=== PATIENT | male | born 1985 | race American Indian/Alaskan Native ===

== ENCOUNTER 2017-09-06 10:32 | Day surgery (SDC) | payer OTHER ==
[~2017-09-06 10:32] MED LIST: ANCEF/STERILE WATER 2 GM/20 ML 2 GM/20 ML SYRINGE IV NR; NACL 0.9% 1000 ML 1,000 ML IV SCH
[2017-09-06 11:22] LABS: Hematocrit 35.7 % (35.5-45.6); Hemoglobin 12.4 gm/dl (11.8-15.2); Mean Corpuscular HGB Conc 35 % (32-34); Mean Corpuscular Hemoglobin 30 pg (28-32); Mean Corpuscular Volume 86 fl (84-94); Platelet Count 302 K/mm3 (140-440); Red Blood Count 4.15 M/mm3 (3.65-5.03); Red Cell Distribution Width 13.9 % (13.2-15.2); White Blood Count 6.3 K/mm3 (4.5-11.0)
[2017-09-06 11:23] LABS: Basophils % (Auto) 1.1 % (0.0-1.8); Eosinophils % (Auto) 6.2 % (0.0-4.3)
[2017-09-06 11:31] LABS: BUN/Creatinine Ratio 23; Blood Urea Nitrogen 16 mg/dL (9-20); Carbon Dioxide 27 mmol/L (22-30); Chloride 96.7 mmol/L (98-107); Glucose 82 mg/dL (75-100); Sodium 134 mmol/L (137-145)
[2017-09-06 11:36] LABS: Anion Gap 16 mmol/L; Potassium 5.3 mmol/L (3.6-5.0)
[2017-09-06] MEDS ORDERED: XYLOCAINE 2% INFILTRATI ONE (13:58)
[2017-09-06] MEDS ORDERED: HEPARIN/NS 5000 UNIT/500ML(CATH LAB) 1,000 ML IR ONE (13:58)
[2017-09-06] MEDS ORDERED: VERSED ONE ×2 (13:59→15:59)
[2017-09-06] MEDS: SUBLIMAZE ONE ×5 (13:59→15:49)
[2017-09-06] MEDS: HEPARIN 10,000 UNITS/10 ML ONE ×2 (14:33→15:33)
[2017-09-06] MEDS: VERSED ONE ×2 (14:38→15:02)
[2017-09-06] MEDS ORDERED: NITROGLYCERIN SYRINGE UD ONE ×2 (14:45→15:45)
[2017-09-06] MEDS ORDERED: SUBLIMAZE ONE ×2 (15:05→16:00)
[2017-09-06] MEDS ORDERED: BENADRYL ONE (15:08)
[2017-09-06] MEDS ORDERED: NITROGLYCERIN SYRINGE 6 ML ONE (15:17)
[2017-09-06] MEDS ORDERED: HEPARIN/NS 5000 UNIT/500ML(CATH LAB) 500 ML IR ONE (15:31)
[2017-09-06] MEDS ORDERED: NITROGLYCERIN SYRINGE 9 ML ONE (16:06)
[2017-09-06] MEDS ORDERED: WATER FOR INJ (PF) 10 ML ONE (16:18)
[2017-09-06] MEDS ORDERED: CATHFLO ONE (16:18)
--- NOTE | 2017-09-06 16:46 | Short Stay Summary ---
Short Stay Documentation Date of service: 09/06/17 - History Principal diagnosis: PVD with rest pain left leg H&P: obtained from office - Allergies and Medications Current Medications: Allergies No Known Allergies Allergy (Verified 09/06/17 11:14) Home Medications Medication Instructions Recorded Confirmed Last Taken Type Meloxicam [Meloxicam] 30 mg pe PO QDAY 09/06/17 09/06/17 09/05/17 History Oxycodone HCl/Acetaminophen 1 tab PO PRN 09/06/17 09/06/17 09/05/17 History [Oxycodone-Acetaminophen 5-325] Prednisone [Prednisone] 20 mg PO QDAY 09/06/17 09/06/17 09/04/17 History Tramadol HCl [traMADol] 50 mg PO PRN PRN 09/06/17 09/06/17 09/02/17 History Active Medications Cefazolin Sodium (Ancef/Sterile Water 2 Gm/20 Ml) 2 gm in 20 mls @ 80 mls/hr IV PREOP NR PRN Reason: Protocol Stop: 09/06/17 23:59 Sodium Chloride (Nacl 0.9% 1000 Ml) 1,000 mls @ 42 mls/hr IV DIRECT MARLENE Last Admin: 09/06/17 11:16 Dose: 42 mls/hr - Brief post op/procedure progress note Date of procedure: 09/06/17 Pre-op diagnosis: PVD with rest pain Post-op diagnosis: same Procedure: LLE revasc Anesthesia: local Surgeon: FEDERICA DOVER Estimated blood loss: minimal Pathology: none Condition: stable - Disposition Condition at discharge: Good Disposition: [id number] TO HOME OR SELFCARE Short Stay Discharge Plan Activity: advance as tolerated Weight Bearing Status: Weight Bear as Tolerated Diet: regular Wound: keep clean and dry, per your surgeon's advice
--- NOTE | 2017-09-06 16:55 | Operative Report ---
Operative Report Operative Report: EXAM: LEFT LOWER EXTREMITY REVASCULARIZATION AND THROMBECTOMY CLINICAL INDICATION: PATIENT WITH A HISTORY OF LEFT LOWER EXTREMITY REST PAIN AND ABNORMAL ARTERIAL ULTRASOUND DATE: 09/06/2017 PROCEDURE: Following an explanation of the risks, benefits and alternatives; written informed consent was obtained. The patient was brought to the angiographic suite and placed in supine position on the examination table. Initial ultrasound evaluation of the right groin demonstrated a patent right common femoral artery. The right groin was prepped and draped in the usual sterile fashion. 1% lidocaine was used for anesthesia. Under ultrasound guidance, the right common femoral artery was cannulated with a 7 cm 21-gauge needle. A 0.018 guidewire was advanced centrally. The needle was removed and a micro-sheath placed. The 0.018 guidewire was exchanged for a 0.035 guidewire and the micro-sheath exchanged for a 5 [place] vascular sheath. A 5 [place] sauce Omni was advanced over the guidewire to the distal abdominal aorta. The guidewire was removed. An aortogram with bilateral lower extremity runoff was then performed. This demonstrates a relatively high bifurcation of the aorta with extensive beaded appearance involving both superficial femoral arteries throughout their length. There is eating in the proximal anterior tibial artery with occlusion distally. The posterior tibial artery and tibioperoneal trunk are completely occluded and filled on the foot with collaterals. The bifurcation was crossed using the 5 [place] Omni catheter and 0.035 guidewire. Additional imaging was obtained for anatomic localization. The guidewire was exchanged for a 4 [place] vertebral catheter and additional imaging obtained with the catheter and positioned in the popliteal artery. Again noted is complete occlusion of the anterior tibial artery posterior tibial artery and peroneal artery with reconstitution through collaterals. Proximal to the occlusion, the arteries have a corrugated appearance. The tibioperoneal trunk was selectively cannulated using the vertebral catheter and V 18 guidewire. The vertebral catheter was exchanged for an 018 Trailblazer catheter and together the Trailblazer catheter and guidewire were advanced to the foot. Contrast was injected with the catheter on the foot which demonstrates a patent calcaneal blood vessels a. With the wire on the foot, the catheter was removed and angioplasty was performed from proximal to distal. A luminal channel was present however, there appeared to be intraluminal thrombus. Mechanical thrombectomy was then performed using a 5 [place]ovan penumbra mechanical thrombectomy device. Post thrombectomy imaging demonstrated improved luminal flow however, there was significant arterial spasm for which nitroglycerin was administered. The anterior tibial artery was then cannulated using the across catheter and V 18 guidewire. Together guidewire and catheter were advanced to the foot. Additional thrombectomy was performed using the 5 [place] penumbra mechanical thrombectomy device. Post thrombectomy angioplasty was performed on the foot to the vessel origin. Significant arterial spasm was again identified and additional nitroglycerin and TPA was injected. Angioplasty of the SFA was then performed using a 5 mm balloon throughout its length. Post procedure imaging demonstrated significant arterial spasm in the lower leg with a patent SFA. At this point, the catheters, guidewires and sheaths were removed and hemostasis was achieved using manual compression. Sterile dressing was then applied. The patient tolerated the procedure well. There were no immediate post procedure competitions. Conscious sedation was performed under the guidance of radiologic nursing. Continuous cardiopulmonary monitoring was utilized. IMPRESSION: 1) Left lower extremity angiography demonstrated a beaded appearance throughout the SFA. This may represent some underlying vasculitis such as fibromuscular dysplasia. Additionally, there is occlusion of the anterior tibial artery, tibioperoneal trunk with reconstitution of the distal anterior tibial artery and posterior tibial artery through collaterals. Just proximal to the occlusion of the anterior tibial artery there is a beaded appearance of the arteries. 2) Mechanical thrombectomy of the posterior tibial artery and anterior tibial artery. 3) Angioplasty of the anterior tibial artery and posterior tibial artery 4) Angioplasty of the superficial femoral artery.
[2017-09-06] MEDS ORDERED: NORCO 5/325 PO ONE (17:19)
[2017-09-06 20:16] VITALS: BP 152/91
== END 2017-09-06 20:30 | disposition home or self-care (01) ==
LOC: CATHLABREC 10:32
PROVIDERS: ATTEND Radiology Diagnostic Radiology
DX: I70.222 Atherosclerosis of native arteries of extremities with rest pain, left leg (principal); Z79.899 Other long term (current) drug therapy
CPT/HCPCS: 36415; 37184; 37185; 37224; 37228; 37232; 75630; 80048; 85025; C1725; C1757; C1760; C1769; C1887; J1200; J1644; J2250; J2997; J3010; J7030; Q9967; 75625; 75716

== ENCOUNTER 2017-09-17 08:53 | Outpatient (CLI) | payer OTHER | END 2017-09-17 08:54 | disposition home or self-care (01) | LOC: WOUND 08:53 | PROVIDERS: ATTEND Podiatrist | DX: I70.262 Atherosclerosis of native arteries of extremities with gangrene, left leg (principal); I74.3 Embolism and thrombosis of arteries of the lower extremities; I73.1 Thromboangiitis obliterans [Buerger's disease]; Z87.891 Personal history of nicotine dependence | CPT/HCPCS: G0277 ×2; 99183 ==

== ENCOUNTER 2017-09-20 08:11 | Outpatient (CLI) | payer OTHER | END 2017-09-20 08:12 | disposition home or self-care (01) | LOC: WOUND 08:11 | PROVIDERS: ATTEND Internal Medicine | DX: I70.262 Atherosclerosis of native arteries of extremities with gangrene, left leg (principal); I74.3 Embolism and thrombosis of arteries of the lower extremities; I73.1 Thromboangiitis obliterans [Buerger's disease]; I73.01 Raynaud's syndrome with gangrene; Z87.891 Personal history of nicotine dependence | CPT/HCPCS: G0277 ×2; 99183 ==

== ENCOUNTER 2017-09-21 08:04 | Outpatient (CLI) | payer OTHER | END 2017-09-21 08:05 | disposition home or self-care (01) | LOC: WOUND 08:04 | PROVIDERS: ATTEND Surgery | DX: I70.262 Atherosclerosis of native arteries of extremities with gangrene, left leg (principal); I73.1 Thromboangiitis obliterans [Buerger's disease]; I74.3 Embolism and thrombosis of arteries of the lower extremities; I73.01 Raynaud's syndrome with gangrene; Z87.891 Personal history of nicotine dependence | CPT/HCPCS: G0277 ×2; 99183 ==

== ENCOUNTER 2017-09-22 08:05 | Outpatient (CLI) | payer OTHER | END 2017-09-22 08:06 | disposition home or self-care (01) | LOC: WOUND 08:05 | PROVIDERS: ATTEND Surgery | DX: I70.262 Atherosclerosis of native arteries of extremities with gangrene, left leg (principal); I74.3 Embolism and thrombosis of arteries of the lower extremities; I73.1 Thromboangiitis obliterans [Buerger's disease]; I73.01 Raynaud's syndrome with gangrene; Z87.891 Personal history of nicotine dependence | CPT/HCPCS: G0277 ×2; 99183 ==

== ENCOUNTER 2017-09-23 08:00 | Outpatient (CLI) | payer OTHER | END 2017-09-23 08:01 | disposition home or self-care (01) | LOC: WOUND 08:00 | PROVIDERS: ATTEND Nurse Practitioner | DX: I70.262 Atherosclerosis of native arteries of extremities with gangrene, left leg (principal); I74.3 Embolism and thrombosis of arteries of the lower extremities; I73.1 Thromboangiitis obliterans [Buerger's disease]; I73.01 Raynaud's syndrome with gangrene; Z87.891 Personal history of nicotine dependence | CPT/HCPCS: G0277 ×2; 99183 ==

== ENCOUNTER 2017-09-24 08:07 | Outpatient (CLI) | payer OTHER | END 2017-09-24 08:08 | disposition home or self-care (01) | LOC: WOUND 08:07 | PROVIDERS: ATTEND Podiatrist | DX: I70.262 Atherosclerosis of native arteries of extremities with gangrene, left leg (principal); I74.3 Embolism and thrombosis of arteries of the lower extremities; I73.1 Thromboangiitis obliterans [Buerger's disease]; I73.01 Raynaud's syndrome with gangrene; Z87.891 Personal history of nicotine dependence | CPT/HCPCS: G0277 ×2; 99183 ==

== ENCOUNTER 2017-09-27 08:06 | Outpatient (CLI) | payer OTHER | END 2017-09-27 08:07 | disposition home or self-care (01) | LOC: WOUND 08:06 | PROVIDERS: ATTEND Internal Medicine | DX: I70.262 Atherosclerosis of native arteries of extremities with gangrene, left leg (principal); I74.3 Embolism and thrombosis of arteries of the lower extremities; I73.1 Thromboangiitis obliterans [Buerger's disease]; I73.01 Raynaud's syndrome with gangrene; Z87.891 Personal history of nicotine dependence | CPT/HCPCS: G0277 ×2; 99183 ==

== ENCOUNTER 2017-09-28 12:59 | Outpatient (CLI) | payer OTHER | END 2017-09-28 13:00 | disposition home or self-care (01) | LOC: WOUND 12:59 | PROVIDERS: ATTEND Surgery | DX: I70.262 Atherosclerosis of native arteries of extremities with gangrene, left leg (principal); I70.261 Atherosclerosis of native arteries of extremities with gangrene, right leg; I74.3 Embolism and thrombosis of arteries of the lower extremities; I73.01 Raynaud's syndrome with gangrene; I73.1 Thromboangiitis obliterans [Buerger's disease]; Z87.891 Personal history of nicotine dependence | CPT/HCPCS: G0277 ×2; 99183 ==

== ENCOUNTER 2017-09-29 11:51 | Outpatient (CLI) | payer OTHER | END 2017-09-29 11:52 | disposition home or self-care (01) | LOC: WOUND 11:51 | PROVIDERS: ATTEND Internal Medicine | DX: I70.262 Atherosclerosis of native arteries of extremities with gangrene, left leg (principal); I70.261 Atherosclerosis of native arteries of extremities with gangrene, right leg; I74.3 Embolism and thrombosis of arteries of the lower extremities; I73.01 Raynaud's syndrome with gangrene; I73.1 Thromboangiitis obliterans [Buerger's disease]; Z87.891 Personal history of nicotine dependence | CPT/HCPCS: G0277 ×2; 99183 ==

== ENCOUNTER 2017-10-04 13:00 | Outpatient (CLI) | payer OTHER | END 2017-10-04 13:01 | disposition home or self-care (01) | LOC: WOUND 13:00 | PROVIDERS: ATTEND Internal Medicine | DX: I70.263 Atherosclerosis of native arteries of extremities with gangrene, bilateral legs (principal); I73.1 Thromboangiitis obliterans [Buerger's disease]; I74.3 Embolism and thrombosis of arteries of the lower extremities; I73.01 Raynaud's syndrome with gangrene; Z87.891 Personal history of nicotine dependence | CPT/HCPCS: G0277 ×2; 99183 ==

== ENCOUNTER 2017-10-05 08:01 | Outpatient (CLI) | payer OTHER | END 2017-10-05 08:02 | disposition home or self-care (01) | LOC: WOUND 08:01 | PROVIDERS: ATTEND Surgery | DX: I70.263 Atherosclerosis of native arteries of extremities with gangrene, bilateral legs (principal); I74.3 Embolism and thrombosis of arteries of the lower extremities; I73.01 Raynaud's syndrome with gangrene; Z87.891 Personal history of nicotine dependence | CPT/HCPCS: G0277 ×2; 99183 ==

== ENCOUNTER 2017-10-06 08:03 | Outpatient (CLI) | payer OTHER | END 2017-10-06 08:04 | disposition home or self-care (01) | LOC: WOUND 08:03 | PROVIDERS: ATTEND Surgery | DX: I70.263 Atherosclerosis of native arteries of extremities with gangrene, bilateral legs (principal); I74.3 Embolism and thrombosis of arteries of the lower extremities; I73.01 Raynaud's syndrome with gangrene; I73.1 Thromboangiitis obliterans [Buerger's disease]; Z87.891 Personal history of nicotine dependence | CPT/HCPCS: G0277 ×2; 99183 ==

== ENCOUNTER 2017-10-07 08:02 | Outpatient (CLI) | payer OTHER | END 2017-10-07 08:03 | disposition home or self-care (01) | LOC: WOUND 08:02 | PROVIDERS: ATTEND Nurse Practitioner | DX: I70.263 Atherosclerosis of native arteries of extremities with gangrene, bilateral legs (principal); I73.1 Thromboangiitis obliterans [Buerger's disease]; I73.01 Raynaud's syndrome with gangrene; I74.3 Embolism and thrombosis of arteries of the lower extremities; Z87.891 Personal history of nicotine dependence | CPT/HCPCS: G0277 ×2; 99183 ==

== ENCOUNTER 2017-10-08 08:15 | Outpatient (CLI) | payer OTHER | END 2017-10-08 08:16 | disposition home or self-care (01) | LOC: WOUND 08:15 | PROVIDERS: ATTEND Podiatrist | DX: I70.263 Atherosclerosis of native arteries of extremities with gangrene, bilateral legs (principal); I73.1 Thromboangiitis obliterans [Buerger's disease]; I73.01 Raynaud's syndrome with gangrene; I74.3 Embolism and thrombosis of arteries of the lower extremities; Z87.891 Personal history of nicotine dependence | CPT/HCPCS: G0277 ×2; 99183 ==

== ENCOUNTER 2017-10-11 08:03 | Outpatient (CLI) | payer OTHER | END 2017-10-11 08:04 | disposition home or self-care (01) | LOC: WOUND 08:03 | PROVIDERS: ATTEND Surgery | DX: I70.263 Atherosclerosis of native arteries of extremities with gangrene, bilateral legs (principal); I74.3 Embolism and thrombosis of arteries of the lower extremities; I73.1 Thromboangiitis obliterans [Buerger's disease]; I73.01 Raynaud's syndrome with gangrene; Z87.891 Personal history of nicotine dependence | CPT/HCPCS: G0277 ×2; 99183 ==

== ENCOUNTER 2017-10-12 08:08 | Outpatient (CLI) | payer OTHER | END 2017-10-12 08:09 | disposition home or self-care (01) | LOC: WOUND 08:08 | PROVIDERS: ATTEND Surgery | DX: I70.263 Atherosclerosis of native arteries of extremities with gangrene, bilateral legs (principal); I73.1 Thromboangiitis obliterans [Buerger's disease]; I73.01 Raynaud's syndrome with gangrene; I74.3 Embolism and thrombosis of arteries of the lower extremities; Z87.891 Personal history of nicotine dependence | CPT/HCPCS: G0277 ×2; 99183 ==

== ENCOUNTER 2017-10-13 07:57 | Outpatient (CLI) | payer OTHER | END 2017-10-13 07:58 | disposition home or self-care (01) | LOC: WOUND 07:57 | PROVIDERS: ATTEND Surgery | DX: I70.263 Atherosclerosis of native arteries of extremities with gangrene, bilateral legs (principal); I73.1 Thromboangiitis obliterans [Buerger's disease]; I73.01 Raynaud's syndrome with gangrene; I74.3 Embolism and thrombosis of arteries of the lower extremities; Z87.891 Personal history of nicotine dependence | CPT/HCPCS: G0277 ×2; 99183 ==

== ENCOUNTER 2017-10-14 07:59 | Outpatient (CLI) | payer OTHER | END 2017-10-14 08:00 | disposition home or self-care (01) | LOC: WOUND 07:59 | PROVIDERS: ATTEND Podiatrist | DX: I70.263 Atherosclerosis of native arteries of extremities with gangrene, bilateral legs (principal); I73.1 Thromboangiitis obliterans [Buerger's disease]; I73.01 Raynaud's syndrome with gangrene; I74.3 Embolism and thrombosis of arteries of the lower extremities; Z87.891 Personal history of nicotine dependence | CPT/HCPCS: G0277 ×2; 99183 ==

== ENCOUNTER 2017-10-15 08:04 | Outpatient (CLI) | payer OTHER | END 2017-10-15 08:05 | disposition home or self-care (01) | LOC: WOUND 08:04 | PROVIDERS: ATTEND Podiatrist | DX: I70.263 Atherosclerosis of native arteries of extremities with gangrene, bilateral legs (principal); I73.1 Thromboangiitis obliterans [Buerger's disease]; I73.01 Raynaud's syndrome with gangrene; I74.3 Embolism and thrombosis of arteries of the lower extremities; Z87.891 Personal history of nicotine dependence | CPT/HCPCS: G0277 ×2; 99183 ==

== ENCOUNTER 2017-10-18 08:02 | Outpatient (CLI) | payer OTHER | END 2017-10-18 08:03 | disposition home or self-care (01) | LOC: WOUND 08:02 | PROVIDERS: ATTEND Internal Medicine | DX: I70.263 Atherosclerosis of native arteries of extremities with gangrene, bilateral legs (principal); I73.1 Thromboangiitis obliterans [Buerger's disease]; I73.01 Raynaud's syndrome with gangrene; I74.3 Embolism and thrombosis of arteries of the lower extremities; Z87.891 Personal history of nicotine dependence | CPT/HCPCS: G0277 ×2; 99183 ==

== ENCOUNTER 2017-10-19 08:05 | Outpatient (CLI) | payer OTHER | END 2017-10-19 08:06 | disposition home or self-care (01) | LOC: WOUND 08:05 | PROVIDERS: ATTEND Surgery | DX: I70.263 Atherosclerosis of native arteries of extremities with gangrene, bilateral legs (principal); I74.3 Embolism and thrombosis of arteries of the lower extremities; I73.1 Thromboangiitis obliterans [Buerger's disease]; I73.01 Raynaud's syndrome with gangrene; Z87.891 Personal history of nicotine dependence | CPT/HCPCS: G0277 ×2; 99183 ==

== ENCOUNTER 2017-10-20 08:14 | Outpatient (CLI) | payer OTHER | END 2017-10-20 08:15 | disposition home or self-care (01) | LOC: WOUND 08:14 | PROVIDERS: ATTEND Surgery | DX: I70.263 Atherosclerosis of native arteries of extremities with gangrene, bilateral legs (principal); I73.1 Thromboangiitis obliterans [Buerger's disease]; I73.01 Raynaud's syndrome with gangrene; I74.3 Embolism and thrombosis of arteries of the lower extremities; Z87.891 Personal history of nicotine dependence | CPT/HCPCS: G0277 ×2; 99183 ==

== ENCOUNTER 2017-10-22 08:22 | Outpatient (CLI) | payer OTHER | END 2017-10-22 08:23 | disposition home or self-care (01) | LOC: WOUND 08:22 | PROVIDERS: ATTEND Podiatrist | DX: I70.263 Atherosclerosis of native arteries of extremities with gangrene, bilateral legs (principal); I73.1 Thromboangiitis obliterans [Buerger's disease]; I73.01 Raynaud's syndrome with gangrene; I74.3 Embolism and thrombosis of arteries of the lower extremities; Z87.891 Personal history of nicotine dependence | CPT/HCPCS: G0277 ×2; 99183 ==

== ENCOUNTER 2017-10-25 08:19 | Outpatient (CLI) | payer OTHER | END 2017-10-25 08:20 | disposition home or self-care (01) | LOC: WOUND 08:19 | PROVIDERS: ATTEND Internal Medicine | DX: I70.263 Atherosclerosis of native arteries of extremities with gangrene, bilateral legs (principal); I73.1 Thromboangiitis obliterans [Buerger's disease]; I73.01 Raynaud's syndrome with gangrene; I74.3 Embolism and thrombosis of arteries of the lower extremities; Z87.891 Personal history of nicotine dependence | CPT/HCPCS: G0277 ×2; 99183 ==

== ENCOUNTER 2017-10-26 08:05 | Outpatient (CLI) | payer OTHER | END 2017-10-26 08:06 | disposition home or self-care (01) | LOC: WOUND 08:05 | PROVIDERS: ATTEND Surgery | DX: I70.263 Atherosclerosis of native arteries of extremities with gangrene, bilateral legs (principal); I73.1 Thromboangiitis obliterans [Buerger's disease]; I73.01 Raynaud's syndrome with gangrene; I74.3 Embolism and thrombosis of arteries of the lower extremities; Z87.891 Personal history of nicotine dependence | CPT/HCPCS: G0277 ×2; 99183 ==

== ENCOUNTER 2017-10-27 08:05 | Outpatient (CLI) | payer OTHER | END 2017-10-27 08:06 | disposition home or self-care (01) | LOC: WOUND 08:05 | PROVIDERS: ATTEND Surgery | DX: I74.3 Embolism and thrombosis of arteries of the lower extremities (principal); I70.262 Atherosclerosis of native arteries of extremities with gangrene, left leg; I73.01 Raynaud's syndrome with gangrene; I73.1 Thromboangiitis obliterans [Buerger's disease]; F17.200 Nicotine dependence, unspecified, uncomplicated | CPT/HCPCS: G0277 ×2; 99183 ==

== ENCOUNTER 2017-10-28 08:07 | Outpatient (CLI) | payer OTHER | END 2017-10-28 08:08 | disposition home or self-care (01) | LOC: WOUND 08:07 | PROVIDERS: ATTEND Nurse Practitioner | DX: I74.3 Embolism and thrombosis of arteries of the lower extremities (principal); I70.262 Atherosclerosis of native arteries of extremities with gangrene, left leg; I73.01 Raynaud's syndrome with gangrene; I73.1 Thromboangiitis obliterans [Buerger's disease]; F17.200 Nicotine dependence, unspecified, uncomplicated | CPT/HCPCS: G0277 ×2; 99183 ==

== ENCOUNTER 2017-10-29 08:17 | Outpatient (CLI) | payer OTHER | END 2017-10-29 08:18 | disposition home or self-care (01) | LOC: WOUND 08:17 | PROVIDERS: ATTEND Podiatrist | DX: I70.263 Atherosclerosis of native arteries of extremities with gangrene, bilateral legs (principal); I73.1 Thromboangiitis obliterans [Buerger's disease]; I73.01 Raynaud's syndrome with gangrene; I74.3 Embolism and thrombosis of arteries of the lower extremities; Z87.891 Personal history of nicotine dependence | CPT/HCPCS: G0277 ×2; 99183 ==

== ENCOUNTER 2017-11-02 08:06 | Outpatient (CLI) | payer OTHER | END 2017-11-02 08:07 | disposition home or self-care (01) | LOC: WOUND 08:06 | PROVIDERS: ATTEND Surgery | DX: I70.263 Atherosclerosis of native arteries of extremities with gangrene, bilateral legs (principal); I73.1 Thromboangiitis obliterans [Buerger's disease]; I73.01 Raynaud's syndrome with gangrene; I74.3 Embolism and thrombosis of arteries of the lower extremities; Z87.891 Personal history of nicotine dependence | CPT/HCPCS: G0277 ×2; 99183 ==

== ENCOUNTER 2017-11-03 08:08 | Outpatient (CLI) | payer OTHER | END 2017-11-03 08:09 | disposition home or self-care (01) | LOC: WOUND 08:08 | PROVIDERS: ATTEND Surgery | DX: I70.263 Atherosclerosis of native arteries of extremities with gangrene, bilateral legs (principal); I73.1 Thromboangiitis obliterans [Buerger's disease]; I74.3 Embolism and thrombosis of arteries of the lower extremities; I73.01 Raynaud's syndrome with gangrene; Z87.891 Personal history of nicotine dependence | CPT/HCPCS: G0277 ×2; 99183 ==

== ENCOUNTER 2017-11-04 08:09 | Outpatient (CLI) | payer OTHER | END 2017-11-04 08:10 | disposition home or self-care (01) | LOC: WOUND 08:09 | PROVIDERS: ATTEND Nurse Practitioner | DX: I70.263 Atherosclerosis of native arteries of extremities with gangrene, bilateral legs (principal); I73.1 Thromboangiitis obliterans [Buerger's disease]; I73.01 Raynaud's syndrome with gangrene; I74.3 Embolism and thrombosis of arteries of the lower extremities; Z87.891 Personal history of nicotine dependence | CPT/HCPCS: G0277 ×2; 99183 ==

== ENCOUNTER 2017-11-05 08:07 | Outpatient (CLI) | payer OTHER | END 2017-11-05 08:08 | disposition home or self-care (01) | LOC: WOUND 08:07 | PROVIDERS: ATTEND Podiatrist | DX: I70.263 Atherosclerosis of native arteries of extremities with gangrene, bilateral legs (principal); I73.1 Thromboangiitis obliterans [Buerger's disease]; I73.01 Raynaud's syndrome with gangrene; I74.3 Embolism and thrombosis of arteries of the lower extremities; Z87.891 Personal history of nicotine dependence | CPT/HCPCS: G0277 ×2; 99183 ==

== ENCOUNTER 2017-11-09 07:59 | Outpatient (CLI) | payer OTHER | END 2017-11-09 08:00 | disposition home or self-care (01) | LOC: WOUND 07:59 | PROVIDERS: ATTEND Surgery | DX: I70.263 Atherosclerosis of native arteries of extremities with gangrene, bilateral legs (principal); I73.1 Thromboangiitis obliterans [Buerger's disease]; I73.01 Raynaud's syndrome with gangrene; I74.3 Embolism and thrombosis of arteries of the lower extremities; Z87.891 Personal history of nicotine dependence | CPT/HCPCS: G0277 ×2; 99183 ==

== ENCOUNTER 2017-11-10 08:10 | Outpatient (CLI) | payer OTHER | END 2017-11-10 08:11 | disposition home or self-care (01) | LOC: WOUND 08:10 | PROVIDERS: ATTEND Surgery | DX: I70.263 Atherosclerosis of native arteries of extremities with gangrene, bilateral legs (principal); I73.1 Thromboangiitis obliterans [Buerger's disease]; I73.01 Raynaud's syndrome with gangrene; I74.3 Embolism and thrombosis of arteries of the lower extremities; Z87.891 Personal history of nicotine dependence | CPT/HCPCS: G0277 ×2; 99183 ==

== ENCOUNTER 2017-11-11 08:04 | Outpatient (CLI) | payer OTHER | END 2017-11-11 08:05 | disposition home or self-care (01) | LOC: WOUND 08:04 | PROVIDERS: ATTEND Surgery | DX: I70.263 Atherosclerosis of native arteries of extremities with gangrene, bilateral legs (principal); I73.1 Thromboangiitis obliterans [Buerger's disease]; I73.01 Raynaud's syndrome with gangrene; I74.3 Embolism and thrombosis of arteries of the lower extremities; Z87.891 Personal history of nicotine dependence | CPT/HCPCS: G0277 ×2; 99183 ==

== ENCOUNTER 2017-11-12 08:15 | Outpatient (CLI) | payer OTHER | END 2017-11-12 08:16 | disposition home or self-care (01) | LOC: WOUND 08:15 | PROVIDERS: ATTEND Podiatrist | DX: I70.262 Atherosclerosis of native arteries of extremities with gangrene, left leg (principal); I73.1 Thromboangiitis obliterans [Buerger's disease]; I73.01 Raynaud's syndrome with gangrene; I74.3 Embolism and thrombosis of arteries of the lower extremities; Z87.891 Personal history of nicotine dependence | CPT/HCPCS: G0277 ×2; 99183 ==

== ENCOUNTER 2017-11-15 08:04 | Outpatient (CLI) | payer OTHER | END 2017-11-15 08:05 | disposition home or self-care (01) | LOC: WOUND 08:04 | PROVIDERS: ATTEND Internal Medicine | DX: I70.262 Atherosclerosis of native arteries of extremities with gangrene, left leg (principal); I73.1 Thromboangiitis obliterans [Buerger's disease]; I73.01 Raynaud's syndrome with gangrene; I74.3 Embolism and thrombosis of arteries of the lower extremities; Z87.891 Personal history of nicotine dependence | CPT/HCPCS: G0277 ×2; 99183 ==

== ENCOUNTER 2017-11-16 08:07 | Outpatient (CLI) | payer OTHER | END 2017-11-16 08:08 | disposition home or self-care (01) | LOC: WOUND 08:07 | PROVIDERS: ATTEND Surgery | DX: I70.262 Atherosclerosis of native arteries of extremities with gangrene, left leg (principal); I74.3 Embolism and thrombosis of arteries of the lower extremities; I73.01 Raynaud's syndrome with gangrene; I73.1 Thromboangiitis obliterans [Buerger's disease]; Z87.891 Personal history of nicotine dependence | CPT/HCPCS: G0277 ×2; 99183 ==

== ENCOUNTER 2017-11-17 08:00 | Outpatient (CLI) | payer OTHER | END 2017-11-17 08:01 | disposition home or self-care (01) | LOC: WOUND 08:00 | PROVIDERS: ATTEND Surgery | DX: I70.262 Atherosclerosis of native arteries of extremities with gangrene, left leg (principal); I73.1 Thromboangiitis obliterans [Buerger's disease]; I73.01 Raynaud's syndrome with gangrene; I74.3 Embolism and thrombosis of arteries of the lower extremities; Z87.891 Personal history of nicotine dependence | CPT/HCPCS: G0277 ×2; 99183 ==

== ENCOUNTER 2017-11-18 08:07 | Outpatient (CLI) | payer OTHER | END 2017-11-18 08:08 | disposition home or self-care (01) | LOC: WOUND 08:07 | PROVIDERS: ATTEND Nurse Practitioner | DX: I70.262 Atherosclerosis of native arteries of extremities with gangrene, left leg (principal); I74.3 Embolism and thrombosis of arteries of the lower extremities; I73.01 Raynaud's syndrome with gangrene; I73.1 Thromboangiitis obliterans [Buerger's disease]; Z87.891 Personal history of nicotine dependence | CPT/HCPCS: G0277 ×2; 99183 ==

== ENCOUNTER 2017-11-19 08:13 | Outpatient (CLI) | payer OTHER | END 2017-11-19 08:14 | disposition home or self-care (01) | LOC: WOUND 08:13 | PROVIDERS: ATTEND Podiatrist | DX: I70.262 Atherosclerosis of native arteries of extremities with gangrene, left leg (principal); L97.821 Non-pressure chronic ulcer of other part of left lower leg limited to breakdown of skin; I73.89 Other specified peripheral vascular diseases; I73.1 Thromboangiitis obliterans [Buerger's disease]; I73.01 Raynaud's syndrome with gangrene; I74.3 Embolism and thrombosis of arteries of the lower extremities; Z87.891 Personal history of nicotine dependence | CPT/HCPCS: G0277 ×2; 99183 ==

== ENCOUNTER 2017-11-22 08:16 | Outpatient (CLI) | payer OTHER | END 2017-11-22 08:17 | disposition home or self-care (01) | LOC: WOUND 08:16 | PROVIDERS: ATTEND Internal Medicine | DX: I70.263 Atherosclerosis of native arteries of extremities with gangrene, bilateral legs (principal); I73.1 Thromboangiitis obliterans [Buerger's disease]; I73.01 Raynaud's syndrome with gangrene; I74.3 Embolism and thrombosis of arteries of the lower extremities; Z87.891 Personal history of nicotine dependence | CPT/HCPCS: G0277 ×2; 99183 ==

== ENCOUNTER 2017-11-23 08:05 | Outpatient (CLI) | payer OTHER | END 2017-11-23 08:06 | disposition home or self-care (01) | LOC: WOUND 08:05 | PROVIDERS: ATTEND Surgery | DX: I70.262 Atherosclerosis of native arteries of extremities with gangrene, left leg (principal); I74.3 Embolism and thrombosis of arteries of the lower extremities; I73.01 Raynaud's syndrome with gangrene; I73.1 Thromboangiitis obliterans [Buerger's disease]; Z87.891 Personal history of nicotine dependence | CPT/HCPCS: G0277 ×2; 99183 ==

== ENCOUNTER 2017-11-25 08:18 | Outpatient (CLI) | payer OTHER | END 2017-11-25 08:19 | disposition home or self-care (01) | LOC: WOUND 08:18 | PROVIDERS: ATTEND Nurse Practitioner | DX: I70.262 Atherosclerosis of native arteries of extremities with gangrene, left leg (principal); I74.3 Embolism and thrombosis of arteries of the lower extremities; I73.01 Raynaud's syndrome with gangrene; I73.1 Thromboangiitis obliterans [Buerger's disease]; Z87.891 Personal history of nicotine dependence | CPT/HCPCS: G0277 ×2; 99183 ==

== ENCOUNTER 2017-11-26 08:09 | Outpatient (CLI) | payer OTHER | END 2017-11-26 08:10 | disposition home or self-care (01) | LOC: WOUND 08:09 | PROVIDERS: ATTEND Podiatrist | DX: I70.262 Atherosclerosis of native arteries of extremities with gangrene, left leg (principal); I74.3 Embolism and thrombosis of arteries of the lower extremities; I73.01 Raynaud's syndrome with gangrene; I73.1 Thromboangiitis obliterans [Buerger's disease]; Z87.891 Personal history of nicotine dependence | CPT/HCPCS: G0277 ×2; 99183 ==

== ENCOUNTER 2017-11-29 08:11 | Outpatient (CLI) | payer OTHER | END 2017-11-29 08:12 | disposition home or self-care (01) | LOC: WOUND 08:11 | PROVIDERS: ATTEND Internal Medicine | DX: I70.262 Atherosclerosis of native arteries of extremities with gangrene, left leg (principal); L97.521 Non-pressure chronic ulcer of other part of left foot limited to breakdown of skin; I73.01 Raynaud's syndrome with gangrene; I73.1 Thromboangiitis obliterans [Buerger's disease]; I74.3 Embolism and thrombosis of arteries of the lower extremities; I73.9 Peripheral vascular disease, unspecified; Z87.891 Personal history of nicotine dependence | CPT/HCPCS: G0277 ×2; 99183 ==

== ENCOUNTER 2017-11-30 08:16 | Outpatient (CLI) | payer OTHER | END 2017-11-30 08:17 | disposition home or self-care (01) | LOC: WOUND 08:16 | PROVIDERS: ATTEND Surgery | DX: I70.263 Atherosclerosis of native arteries of extremities with gangrene, bilateral legs (principal); I73.1 Thromboangiitis obliterans [Buerger's disease]; I73.01 Raynaud's syndrome with gangrene; I74.3 Embolism and thrombosis of arteries of the lower extremities; Z87.891 Personal history of nicotine dependence | CPT/HCPCS: G0277 ×2; 99183 ==

== ENCOUNTER 2017-12-01 08:09 | Outpatient (CLI) | payer OTHER | END 2017-12-01 08:10 | disposition home or self-care (01) | LOC: WOUND 08:09 | PROVIDERS: ATTEND Surgery | DX: I70.263 Atherosclerosis of native arteries of extremities with gangrene, bilateral legs (principal); I73.01 Raynaud's syndrome with gangrene; I73.1 Thromboangiitis obliterans [Buerger's disease]; I74.3 Embolism and thrombosis of arteries of the lower extremities; Z87.891 Personal history of nicotine dependence | CPT/HCPCS: G0277 ×2; 99183 ==

== ENCOUNTER 2017-12-02 08:13 | Outpatient (CLI) | payer OTHER | END 2017-12-02 08:14 | disposition home or self-care (01) | LOC: WOUND 08:13 | PROVIDERS: ATTEND Nurse Practitioner | DX: I70.263 Atherosclerosis of native arteries of extremities with gangrene, bilateral legs (principal); I73.1 Thromboangiitis obliterans [Buerger's disease]; I73.01 Raynaud's syndrome with gangrene; I74.3 Embolism and thrombosis of arteries of the lower extremities; Z87.891 Personal history of nicotine dependence | CPT/HCPCS: G0277 ×2; 99183 ==

== ENCOUNTER 2017-12-03 08:06 | Outpatient (CLI) | payer OTHER | END 2017-12-03 08:07 | disposition home or self-care (01) | LOC: WOUND 08:06 | PROVIDERS: ATTEND Podiatrist | DX: I70.263 Atherosclerosis of native arteries of extremities with gangrene, bilateral legs (principal); I73.01 Raynaud's syndrome with gangrene; I73.1 Thromboangiitis obliterans [Buerger's disease]; I74.3 Embolism and thrombosis of arteries of the lower extremities; Z87.891 Personal history of nicotine dependence | CPT/HCPCS: G0277 ×2; 99183 ==

== ENCOUNTER 2017-12-06 08:10 | Outpatient (CLI) | payer OTHER | END 2017-12-06 08:11 | disposition home or self-care (01) | LOC: WOUND 08:10 | PROVIDERS: ATTEND Internal Medicine | DX: I70.263 Atherosclerosis of native arteries of extremities with gangrene, bilateral legs (principal); I73.1 Thromboangiitis obliterans [Buerger's disease]; I73.01 Raynaud's syndrome with gangrene; I74.3 Embolism and thrombosis of arteries of the lower extremities; Z87.891 Personal history of nicotine dependence | CPT/HCPCS: G0277 ×2; 99183 ==

== ENCOUNTER 2017-12-07 08:10 | Outpatient (CLI) | payer OTHER | END 2017-12-07 08:11 | disposition home or self-care (01) | LOC: WOUND 08:10 | PROVIDERS: ATTEND Surgery | DX: I70.263 Atherosclerosis of native arteries of extremities with gangrene, bilateral legs (principal); I73.1 Thromboangiitis obliterans [Buerger's disease]; I73.01 Raynaud's syndrome with gangrene; I74.3 Embolism and thrombosis of arteries of the lower extremities; Z87.891 Personal history of nicotine dependence | CPT/HCPCS: G0277 ×2; 99183 ==

== ENCOUNTER 2017-12-08 08:19 | Outpatient (CLI) | payer OTHER | END 2017-12-08 08:20 | disposition home or self-care (01) | LOC: WOUND 08:19 | PROVIDERS: ATTEND Surgery | DX: I70.263 Atherosclerosis of native arteries of extremities with gangrene, bilateral legs (principal); I73.1 Thromboangiitis obliterans [Buerger's disease]; I73.01 Raynaud's syndrome with gangrene; I74.3 Embolism and thrombosis of arteries of the lower extremities; Z87.891 Personal history of nicotine dependence | CPT/HCPCS: G0277 ×2; 99183 ==

== ENCOUNTER 2017-12-09 08:22 | Outpatient (CLI) | payer OTHER | END 2017-12-09 08:23 | disposition home or self-care (01) | LOC: WOUND 08:22 | PROVIDERS: ATTEND Nurse Practitioner | DX: I70.263 Atherosclerosis of native arteries of extremities with gangrene, bilateral legs (principal); I73.1 Thromboangiitis obliterans [Buerger's disease]; I73.01 Raynaud's syndrome with gangrene; I74.3 Embolism and thrombosis of arteries of the lower extremities; Z87.891 Personal history of nicotine dependence | CPT/HCPCS: G0277 ×2; 99183 ==

== ENCOUNTER 2017-12-10 08:14 | Outpatient (CLI) | payer OTHER | END 2017-12-10 08:15 | disposition home or self-care (01) | LOC: WOUND 08:14 | PROVIDERS: ATTEND Internal Medicine | DX: I70.262 Atherosclerosis of native arteries of extremities with gangrene, left leg (principal); I74.3 Embolism and thrombosis of arteries of the lower extremities; I73.01 Raynaud's syndrome with gangrene; I73.1 Thromboangiitis obliterans [Buerger's disease]; Z87.891 Personal history of nicotine dependence | CPT/HCPCS: G0277 ×2; 99183 ==

== ENCOUNTER 2017-12-13 08:04 | Outpatient (CLI) | payer OTHER | END 2017-12-13 08:05 | disposition home or self-care (01) | LOC: WOUND 08:04 | PROVIDERS: ATTEND Internal Medicine | DX: I70.262 Atherosclerosis of native arteries of extremities with gangrene, left leg (principal); I74.3 Embolism and thrombosis of arteries of the lower extremities; I73.01 Raynaud's syndrome with gangrene; I73.1 Thromboangiitis obliterans [Buerger's disease]; Z87.891 Personal history of nicotine dependence | CPT/HCPCS: G0277 ×2; 99183 ==

== ENCOUNTER 2017-12-14 08:12 | Outpatient (CLI) | payer OTHER | END 2017-12-14 08:13 | disposition home or self-care (01) | LOC: WOUND 08:12 | PROVIDERS: ATTEND Surgery | DX: I70.262 Atherosclerosis of native arteries of extremities with gangrene, left leg (principal); I74.3 Embolism and thrombosis of arteries of the lower extremities; I73.01 Raynaud's syndrome with gangrene; I73.1 Thromboangiitis obliterans [Buerger's disease]; Z87.891 Personal history of nicotine dependence | CPT/HCPCS: G0277 ×2; 99183 ==

== ENCOUNTER 2017-12-15 08:15 | Outpatient (CLI) | payer OTHER | END 2017-12-15 08:16 | disposition home or self-care (01) | LOC: WOUND 08:15 | PROVIDERS: ATTEND Surgery | DX: I70.263 Atherosclerosis of native arteries of extremities with gangrene, bilateral legs (principal); I73.01 Raynaud's syndrome with gangrene; I74.3 Embolism and thrombosis of arteries of the lower extremities; I73.1 Thromboangiitis obliterans [Buerger's disease]; Z87.891 Personal history of nicotine dependence | CPT/HCPCS: G0277 ×2; 99183 ==

== ENCOUNTER 2017-12-16 08:16 | Outpatient (CLI) | payer OTHER | END 2017-12-16 08:17 | disposition home or self-care (01) | LOC: WOUND 08:16 | PROVIDERS: ATTEND Nurse Practitioner | DX: I70.263 Atherosclerosis of native arteries of extremities with gangrene, bilateral legs (principal); I73.01 Raynaud's syndrome with gangrene; I73.1 Thromboangiitis obliterans [Buerger's disease]; I74.3 Embolism and thrombosis of arteries of the lower extremities; Z87.891 Personal history of nicotine dependence | CPT/HCPCS: G0277 ×2; 99183 ==

== ENCOUNTER 2017-12-17 08:10 | Outpatient (CLI) | payer OTHER | END 2017-12-17 08:11 | disposition home or self-care (01) | LOC: WOUND 08:10 | PROVIDERS: ATTEND Podiatrist | DX: I70.263 Atherosclerosis of native arteries of extremities with gangrene, bilateral legs (principal); I73.1 Thromboangiitis obliterans [Buerger's disease]; I73.01 Raynaud's syndrome with gangrene; I74.3 Embolism and thrombosis of arteries of the lower extremities; Z87.891 Personal history of nicotine dependence | CPT/HCPCS: G0277 ×2; 99183 ==